=== PATIENT | female | born 1995 | race Hispanic/Latino ===

== ENCOUNTER 2017-05-01 11:44 | Emergency (ER) | payer OTHER ==
[2017-05-01 12:01] VITALS: BMI 21.4
[2017-05-01 12:02] VITALS: BP 135/86; PULSE 93; RESP 17; TEMP 99; O2SAT 97
--- NOTE | 2017-05-01 14:15 | ED PDOC ---
HPI: Skin/Bite Injury Time Seen by Provider: 05/01/17 12:05 Chief Complaint (Nursing): Abnormal Skin Integrity Past Medical History Vital Signs: Last Vital Signs Temp 99 F 05/01/17 12:00 Pulse 93 H 05/01/17 12:00 Resp 17 05/01/17 12:00 BP 135/86 05/01/17 12:00 Pulse Ox 97 05/01/17 12:00 - Home Medications Home Medications: Ambulatory Orders Medication Instructions Recorded DiphenhydrAMINE [Benadryl] 50 mg PO Q6H PRN #20 cap 05/01/17 Famotidine [Pepcid] 20 mg PO BID #20 tab 05/01/17 Prednisone 50 mg PO DAILY #4 tab 05/01/17 - Allergies Allergies/Adverse Reactions: Allergies Allergy/AdvReac Type Severity Reaction Status Date / Time No Known Allergies Allergy Verified 05/01/17 12:08 - ECG O2 Sat by Pulse Oximetry: 97 Disposition - Clinical Impression Clinical Impression: Urticaria - Disposition [facility]errals: [facility]Outside] Disposition: Routine/Home Disposition Time: 14:12 Prescriptions: DiphenhydrAMINE [Benadryl] 50 mg PO Q6H PRN #20 cap PRN Reason: Rash Famotidine [Pepcid] 20 mg PO BID #20 tab Prednisone 50 mg PO DAILY #4 tab Instructions: Urticaria (ED) Forms: [facility] (Sami)
== END 2017-05-01 15:37 | disposition home or self-care (01) ==
LOC: H.ER 11:44
DX: L50.9 Urticaria, unspecified (principal)